=== PATIENT | female | born 1975 | race Caucasian/White ===

== ENCOUNTER 2018-07-19 07:19 | Emergency (ER) | payer MEDICAID, OTHER ==
[~2018-07-19] VITALS: Ht 157.5 cm; Wt 73.0 kg
[2018-07-19 07:21] VITALS: BP 188/82
== END 2018-07-19 14:14 | disposition left against medical advice (07) ==
LOC: ER 07:35
DX: Z53.21 Procedure and treatment not carried out due to patient leaving prior to being seen by health care provider (principal)